=== PATIENT | male | born 1985 | race Caucasian/White ===

== ENCOUNTER 2016-12-22 00:52 | Emergency (ER) | payer SELFPAY ==
--- NOTE | ~2016-12-22 | EKG ---
PATIENT: TAWANA COELLO UNIT #: [id number] Ventricular Rate: 111 BPM Atrial Rate: 111 BPM P-R Interval: 128 ms QRS Duration: 110 ms Q-T Interval: 360 ms QTC Calculation(Bezet): 489 ms P Palmer: 72 degrees Calculated R Palmer: 13 degrees Calculated T Palmer: 42 degrees Diagnosis Line: Sinus tachycardia Diagnosis Line: Incomplete right bundle branch block Diagnosis Line: Borderline ECG Diagnosis Line: No previous ECGs available Diagnosis Line: Confirmed by JEROD MUNIZ MD ([id number]) on Diagnosis Line: 12/22/2016 1:39:14 PM INTERPRETING MD: CRISTY MARSHALL
--- NOTE | ~2016-12-22 | CT71 ---
[facility] A Service [facility] RADIOLOGY TEXT RESULTS PATIENT: TAWANA COELLO LOCATION: SED : 85 UNIT #: [id number] AGE: [address]: Maya Arceo MD SEX: M ORDER DR: [id number] [place] [address] [id number] E MR#: [id number] Acc #: [id number] NAME: TAWANA COELLO : 1985 SEX: M STUDY DATE/TIME: 12/22/2016 1:20 UNIT: SED ROOM: STUDY DESCRIPTION: CT Head Wo Contrast Attending Physician: Maya Arceo M.D. Ordering Physician: Maya Arceo M.D. MEDICAL IMAGING REPORT This report is preliminary unless electronic signature is present. EXAM Head CT, 12/22 HISTORY Patient found unresponsive and blue with possible overdose tonight. Patient reports posterior headache. COMPARISON: None TECHNIQUE Axial noncontrast images were obtained from the skull base to the vertex. This CT exam was performed with one or more of the following radiation dose reduction techniques: automatic exposure control, adjustment of mA and/or kV according to patient size, and iterative reconstruction. FINDINGS Ventricular size and configuration are normal. There is no evidence of acute infarct or hemorrhage. There are no extraaxial fluid collections. No mass lesion or mass effect is seen. There are no skull fractures. IMPRESSION Normal noncontrast head CT. Dictated by... Garo Lerma Jr., M.D. [facility] A Service [facility] RADIOLOGY TEXT RESULTS PATIENT: TAWANA COELLO LOCATION: SED : 85 UNIT #: [id number] AGE: [address]: Maya Arceo MD SEX: M ORDER DR: THIS IS AN ELECTRONICALLY VERIFIED REPORT Garo Lerma Jr., M.D. at 12/22/2016 11:26 AM MALORIEK/jordan TD: 12/22/2016 09:36 JOB #: [id number] MEDICAL IMAGING REPORT Page 1 of 1
--- NOTE | ~2016-12-22 | CR72 ---
[facility]. [facility] A Service of [facility] RADIOLOGY TEXT RESULTS PATIENT: TAWANA COELLO LOCATION: SED : 85 UNIT #: [id number] AGE: [address]: Maya Arceo MD SEX: M ORDER DR: [id number] [place] [address] [id number] E MR#: [id number] Acc #: [id number] NAME: TAWANA COELLO : 1985 SEX: M STUDY DATE/TIME: 12/22/2016 1:09 UNIT: SED ROOM: STUDY DESCRIPTION: CR Chest Single View Portable Attending Physician: Maya Arceo M.D. Ordering Physician: Maya Arceo M.D. MEDICAL IMAGING REPORT This report is preliminary unless electronic signature is present. EXAM Portable chest 12/22 INDICATIONS Patient found unresponsive with fall with possible overdose tonight. Possible aspiration. Cough tonight. FINDINGS A single AP portable view of the chest shows both lungs to be clear. The heart is normal in size. The mediastinal contour is normal. No significant bone abnormalities are seen. IMPRESSION Normal portable chest. Dictated by... Garo Lerma Jr., M.D. THIS IS AN ELECTRONICALLY VERIFIED REPORT Garo Lerma Jr., M.D. at 12/22/2016 11:26 AM LESLY/jordan TD: 12/22/2016 09:34 JOB #: [id number] MEDICAL IMAGING REPORT Page 1 of 1
[2016-12-22 01:26] LABS: BASOPHIL# 0.1 X10e3 (0-0.3); BASOPHIL% 0.6 % (0-2.5); EOSINOPHIL# 0.6 X10e3 (0-0.7); EOSINOPHIL% 4.7 % (0.0-7.0); HEMATOCRIT 43.7 % (38.0-50.0); HEMOGLOBIN 14.5 gm/dL (13.0-16.0); LYMPHOCYTE# 5.7 X10e3 (1.0-3.5); MEAN CELL VOLUME 90.5 FL (83-96); MEAN CORPUSCULAR HEMOGLOBIN 30.1 PG (28-34); MEAN CORPUSCULAR HGB CONC 33.2 g/dL (30-36); MEAN PLATELET VOLUME 7.1 FL (6.5-11.5); MONOCYTE# 1.8 X10e3 (0-1.0); MONOCYTE% 13.3 % (3.0-12.0); NEUTROPHIL# 5.1 X10e3 (1.5-7.1); NEUTROPHIL% 38.4 % (40-75); PLATELET COUNT 289 X10e3 (140-420); RED BLOOD COUNT 4.82 X10e (3.90-5.60); RED CELL DISTRIBUTION WIDTH 14.1 % (11.0-15.5); WHITE BLOOD COUNT 13.2 X10e3 (4.0-10.5)
[2016-12-22 01:28] LABS: DIFF IND NO
[2016-12-22 01:41] LABS: POC - CKMB <1.0 ng/mL (0.0-7.9); POC - TROPONIN <0.05 ng/mL (<=0.05)
[2016-12-22 01:41] LABS: URINE SOURCE CLEAN CATCH
[2016-12-22 01:44] LABS: URINE APPEARANCE CLEAR; URINE BILIRUBIN NEG (NEG); URINE BLOOD NEG (NEG); URINE COLOR YELLOW; URINE GLUCOSE 100 MG/DL (NORM); URINE KETONE TRACE (NEG); URINE LEUKOCYTE ESTERASE NEG (NEG); URINE NITRATE NEG (NEG); URINE PROTEIN NEG (NEG); URINE SPECIFIC GRAVITY >=1.030 (1.003-1.035); URINE UROBILINOGEN 0.2 MG/DL (NORM)
[2016-12-22 01:45] LABS: ALBUMIN SERUM 4.2 g/dL (3.5-5.0); BUN/CREATININE RATIO 18.18; CALCIUM SERUM 8.6 mg/dL (8.4-10.2); CREATININE SERUM 1.1 mg/dL (0.6-1.4); POTASSIUM 4.2 mmol/L (3.5-5.1); PROTEIN TOTAL SERUM 7.3 g/dL (6.0-8.3)
[2016-12-22 01:48] LABS: MICRO INDICATED? NO
[2016-12-22 01:53] LABS: AMPHETAMINE POS (NEG); BARBITURATES NEG (NEG); BENZODIAZEPINES NEG (NEG); COCAINE NEG (NEG); MARIJUANA POS (NEG); OPIATES POS (NEG); TRICYCLIC ANTIDEPRESSANTS NEG (NEG); U METHADONE NEG (NEG)
== END 2016-12-22 03:33 | disposition home or self-care (01) ==
LOC: SED 00:52
PROVIDERS: Emergency Medicine
DX: F11.129 Opioid abuse with intoxication, unspecified (principal)
CPT/HCPCS: 70450; 71010; 80053; 80307; 81003; 82553; 82947; 84484; 85025; 93005; 96361; 96374; 96375; 99285; G0480; J2405